=== PATIENT | female | born 1985 | race African-American/Black ===

== ENCOUNTER 2019-03-09 08:23 | Emergency (ER) | payer OTHER ==
[~2019-03-09] VITALS: Ht 165.1 cm; Wt 81.4 kg
[2019-03-09 08:32] VITALS: BP 148/51
[2019-03-09] MEDS ORDERED: KETOROLAC 30 MG/ML VIAL. IM ONE (09:00)
[2019-03-09] MEDS ORDERED: MELO7.5T29 PO (09:05)
--- NOTE | 2019-03-09 09:05 | PHYS DOC ---
Past History Past Medical History: Anxiety Past Surgical History: Other Additional Past Surgical Histo: left hip cartilage clean out and tendon extension Alcohol Use: None Drug Use: None Adult General Chief Complaint Chief Complaint: FOOT INJURY PAIN HPI HPI Patient is a 33-year-old female presents complaining of left foot pain. It has been present for the past month, worse over the past 48 hours, especially after using a recumbent bike approximately 2 days ago and cycling approximately 10 miles. There has been no other trauma noted. No pain proximal to the ankle. No numbness or tingling. No home medicines have been taken. No improvement with resting and ice. No swelling or bruising is present. Increased pain with movement. Pain is sharp in nature. Moderate in intensity[] Review of Systems Review of Systems Constitutional: Denies fever or chills [] Eyes: Denies change in visual acuity, redness, or eye pain [] HENT: Denies nasal congestion or sore throat [] Respiratory: Denies cough or shortness of breath [] Cardiovascular: No chest pain or palpitations[] GI: Denies abdominal pain, nausea, vomiting, bloody stools or diarrhea [] : Denies dysuria or hematuria [] Musculoskeletal: Denies back pain, see history of present illness[] Integument: Denies rash or skin lesions [] Neurologic: Denies headache, focal weakness or sensory changes [] Endocrine: Denies polyuria or polydipsia [] All other systems were reviewed and found to be within normal limits, except as documented in this note. Physical Exam Physical Exam Constitutional: Well developed, well nourished, no acute distress, non-toxic appearance. [] HENT: Normocephalic, atraumatic, bilateral external ears normal, oropharynx moist, no oral exudates, nose normal. [] Eyes: PERRLA, EOMI, conjunctiva normal, no discharge. [] Neck: Normal range of motion, no tenderness, supple, no stridor. [] Cardiovascular:Heart rate regular rhythm, no murmur [] Lungs & Thorax: Bilateral breath sounds clear to auscultation [] Abdomen: Not examined. [] Skin: Warm, dry, no erythema, no rash. [] Back: No tenderness, no CVA tenderness. [] Extremities: Left foot has no erythema, no edema, capillary refills less than 2 seconds, and it is warm. Distally neurovascularly intact. There is diffuse pain across the midfoot. No specific pain with axial loading of any of the metatarsals. No base of the fifth metatarsal tenderness. Pain is on both the dorsal and plantar surface of the foot. No tenderness at the base of the calcaneus where the plantar fascia inserts. Full active range of motion of the ankle and the toes. No ankle tenderness. The other 3 extremities show: No tenderness, no cyanosis, no clubbing, ROM intact, no edema. [] Neurologic: Alert and oriented X 3, normal motor function, normal sensory function, no focal deficits noted. [] Psychologic: Affect normal, judgement normal, mood normal. [] Current Patient Data Vital Signs Vital Signs Date Time Temp Pulse Resp B/P (MAP) Pulse Ox O2 Delivery O2 Flow Rate FiO2 03/09/19 08:32 97.7 83 16 100 Room Air EKG EKG [] Radiology/Procedures Radiology/Procedures Three-view x-ray series of the left foot shows no fracture, no dislocation, no abnormal soft tissue swelling.[] Course & Med Decision Making Course & Med Decision Making Pertinent Labs and Imaging studies reviewed. (See chart for details) ED course: Patient arrived, was placed in bed, and tolerated exam well. She was transported to and from radiology without any complications. She was given parenteral NSAIDs which improved her pain. Findings were discussed with the patient who voiced understanding. She was discharged in improved condition with all questions answered. Medical decision making: There is no evidence of a fracture or dislocation. No evidence of neurologic or vascular injury. This seems to be more of a soft tissue issue.[] Dragon Disclaimer Dragon Disclaimer This electronic medical record was generated, in whole or in part, using a voice recognition dictation system. Departure Departure: Impression: Primary Impression: Sprain of foot, left Disposition: 01 HOME, SELF-CARE Condition: IMPROVED Referrals: YEYO VU MD (PCP) Follow-up in 2 days Patient Instructions: Foot Sprain Additional Instructions: Follow-up with your regular doctor in 2 days. Return to the ER if worsening pain, weakness, or any other concerns. Scripts Meloxicam (MELOXICAM) 7.5 Mg Tablet 7.5 MG PO DAILY for PAIN, #20 TAB Prov: AHSAN SANCHES DO 03/09/19 Problem Qualifiers Primary Impression: Sprain of foot, left Encounter type: initial encounter Qualified Codes: S93.602A - Unspecified sprain of left foot, initial encounter AHSAN SANCHES DO Mar 09, 2019 09:05
--- NOTE | 2019-03-09 09:21 | RAD ---
FOOT LEFT 3V DATE: 03/09/2019 8:38 AM INDICATION: Dorsal foot pain. No known injury. COMPARISON: None. FINDINGS: Bones: There is no evidence of acute fracture or dislocation. Joints: The joint spaces are normal. Miscellaneous: No focal soft tissue swelling. IMPRESSION: No acute osseous abnormality. Electronically signed by: Arpit Medeiros MD (03/09/2019 9:18 AM) [facility]
[2019-03-09] MEDS ORDERED: IOHEXOL 240 MG/ML 50ML VIAL. PO ONE (09:30)
[2019-03-09] MEDS ORDERED: IOHEXOL 300 MG/ML 75 ML VIAL. IV ONE (09:30)
== END 2019-03-09 09:14 | disposition home or self-care (01) ==
LOC: ER 08:23
DX: S93.602A Unspecified sprain of left foot, initial encounter (principal); X50.9XXA Other and unspecified overexertion or strenuous movements or postures, initial encounter; Y93.89 Activity, other specified; Y92.89 Other specified places as the place of occurrence of the external cause; Y99.8 Other external cause status
CPT/HCPCS: 73630; 96372; 99284; J1885

== ENCOUNTER 2019-08-26 08:36 | Emergency (ER) | payer OTHER ==
[~2019-08-26] VITALS: Ht 165.1 cm; Wt 81.4 kg
[~2019-08-26 08:36] MED LIST: MELO7.5T29 PO
[2019-08-26 08:40] VITALS: BP 102/64
--- NOTE | 2019-08-26 09:09 | PHYS DOC ---
Past History Past Medical History: Anxiety Past Surgical History: Other Additional Past Surgical Histo: left hip cartilage clean out and tendon extension Alcohol Use: Occasionally Drug Use: None Adult General Chief Complaint Chief Complaint: FOOT INJURY PAIN [facility] Patient is a 34-year-old female who presents with complaint of left foot pain after twisting it while coming down stairs. Patient denies any other injuries. Patient rates pain as moderate states that pain is worse with weightbearing. Injury occurred early this morning.[] Review of Systems Review of Systems Constitutional: Denies fever or chills [] Respiratory: Denies cough or shortness of breath [] Cardiovascular: No additional information not addressed in HPI [] Musculoskeletal: Positive left foot pain [] Integument: Denies rash or skin lesions [] Allergies Allergies Allergies Coded Allergies Type Severity Reaction Last Updated Verified No Known Drug Allergies 03/09/19 No Physical Exam Physical Exam Constitutional: Well developed, well nourished, no acute distress, non-toxic appearance. [] Cardiovascular:Heart rate regular rhythm, no murmur [] Lungs & Thorax: Bilateral breath sounds clear to auscultation [] Extremities: Examination of left foot demonstrates no soft tissue swelling or external signs of trauma. There is tenderness to palpation primarily on the plantar aspect of the foot overlying the first metatarsal. Examination of left ankle demonstrates no malleolar tenderness [] Neurologic: Alert and oriented X 3, no focal deficits noted. [] Current Patient Data Vital Signs Vital Signs Date Time Temp Pulse Resp B/P (MAP) Pulse Ox O2 Delivery O2 Flow Rate FiO2 08/26/19 08:40 98.1 74 18 102/64 (77) 98 Room Air EKG EKG [] Radiology/Procedures Radiology/Procedures [] Impressions: PROCEDURE: FOOT LEFT 3V EXAM: 3 views left foot DATE: 08/26/2019 8:55 AM INDICATION: Left foot injury, left foot pain COMPARISON: No Prior FINDINGS/ IMPRESSION: 1. No evidence of acute fracture or dislocation. If there is persistent clinical concern for fracture, follow-up radiographs in 10-14 days is recommended. 2. Longitudinal lucency through the middle cuneiform likely projectional artifact and unchanged to 03/09/2019. 3. Joint spaces are preserved without significant degenerative/proliferative change. Electronically signed by: Ronaldo Mcmanus MD (08/26/2019 9:13 AM) [id number] DICTATED AND SIGNED BY: RONALDO MCMANUS MD DATE: 08/26/19912 CC: RENETTA SOLIS Jr. DO; YEYO VU MD ~ Course & Med Decision Making Course & Med Decision Making Pertinent Labs and Imaging studies reviewed. (See chart for details) [] Dragon Disclaimer Dragon Disclaimer This electronic medical record was generated, in whole or in part, using a voice recognition dictation system. Departure Departure: Impression: Primary Impression: Sprain of left foot Disposition: HOME, SELF-CARE Condition: STABLE Referrals: YEYO VU MD (PCP) Patient Instructions: Foot Sprain Scripts Diclofenac Sodium (DICLOFENAC SODIUM) 50 Mg Tablet.dr 1 TAB PO BID PRN for PAIN, #20 TAB Prov: RENETTA SOLIS Jr., DO 08/26/19 Problem Qualifiers Primary Impression: Sprain of left foot Encounter type: initial encounter Qualified Codes: S93.602A - Unspecified sprain of left foot, initial encounter RENETTA SOLIS Jr., DO Aug 26, 2019 09:09
--- NOTE | 2019-08-26 09:16 | RAD ---
EXAM: 3 views left foot DATE: 08/26/2019 8:55 AM INDICATION: Left foot injury, left foot pain COMPARISON: No Prior FINDINGS/ IMPRESSION: 1. No evidence of acute fracture or dislocation. If there is persistent clinical concern for fracture, follow-up radiographs in 10-14 days is recommended. 2. Longitudinal lucency through the middle cuneiform likely projectional artifact and unchanged to 03/09/2019. 3. Joint spaces are preserved without significant degenerative/proliferative change. Electronically signed by: Ronaldo Mcmanus MD (08/26/2019 9:13 AM) [id number]
[2019-08-26] MEDS ORDERED: DICL50TA4 PO (09:19)
== END 2019-08-26 09:27 | disposition home or self-care (01) ==
LOC: ER 08:36
DX: S93.602A Unspecified sprain of left foot, initial encounter (principal); X50.1XXA Overexertion from prolonged static or awkward postures, initial encounter; Y93.89 Activity, other specified; Y92.89 Other specified places as the place of occurrence of the external cause; Y99.8 Other external cause status
CPT/HCPCS: 73630; 99283